=== PATIENT | male | born 1990 | race Caucasian/White ===

== ENCOUNTER 2019-06-08 04:00 | Emergency (ER) | payer SELFPAY ==
--- NOTE | 2019-06-08 04:34 | EDM.PDOC ---
ED HPI GENERAL MEDICAL PROBLEM - General Chief Complaint: General Stated Complaint: AMB Time Seen by Provider: 06/08/19 04:27 Source of Information: Reports: Patient History Limitations: Reports: No Limitations - History of Present Illness INITIAL COMMENTS - FREE TEXT/NARRATIVE: 29-year-old male presents the emergency room with multiple small nonsuturable lacerations to the face and hands. Patient in an argument with police. Patient tried several times to escape the police and is now in handcuffs Onset: Today Duration: Intermittent Location: Reports: Head, Face Severity: Mild Improves with: Reports: None Associated Symptoms: Reports: No Other Symptoms - Related Data Allergies Allergy/AdvReac Type Severity Reaction Status Date / Time Unable to Assess Allergy Unverified 06/08/19 04:07 Home Meds: Home Meds . [Unable to Verify Home Med List] 06/08/19 [History] ED ROS GENERAL - Review of Systems Review Of Systems: See Below Constitutional: Reports: No Symptoms HEENT: Reports: No Symptoms, Other (Multiple small lacerations) Respiratory: Reports: No Symptoms Cardiovascular: Reports: No Symptoms Endocrine: Reports: No Symptoms GI/Abdominal: Reports: No Symptoms : Reports: No Symptoms Musculoskeletal: Reports: No Symptoms Skin: Reports: No Symptoms Neurological: Reports: No Symptoms Psychiatric: Reports: No Symptoms Hematologic/Lymphatic: Reports: No Symptoms Immunologic: Reports: No Symptoms ED EXAM, GENERAL - Physical Exam Exam: See Below Exam Limited By: No Limitations General Appearance: Alert, WD/WN, No Apparent Distress Eye Exam: Bilateral Eye: Normal Fundi, Normal Inspection, PERRL Ears: Normal External Exam, Normal Canal Ear Exam: Bilateral Ear: Auricle Normal Nose: Other (Superficial laceration to the nares) Throat/Mouth: Normal Inspection, Normal Lips Head: Atraumatic Neck: Normal Inspection Respiratory/Chest: No Respiratory Distress Cardiovascular: Normal Peripheral Pulses GI/Abdominal: Normal Bowel Sounds, Soft, Non-Tender Back Exam: Normal Inspection Extremities: Normal Inspection Neurological: Alert, Oriented, CN II-XII Intact Psychiatric: Normal Affect Skin Exam: Warm, Dry, Intact Lymphatic: No Adenopathy Course - Vital Signs Text/Narrative:: Presents the emergency room with a multiple lacerations to the face. Patient is intoxicated but not too intoxicated to fight to police officers. Patient is oriented x3. Patient has no pain in the C-spine area. Injuries appear to be multiple abrasions to the face bleeding is controlled. Last Recorded V/S: Last Vital Signs Temp 98.2 F 06/08/19 04:00 Pulse 112 H 06/08/19 04:00 Resp 18 06/08/19 04:00 BP 121/80 06/08/19 04:00 Pulse Ox 95 06/08/19 04:00 Departure - Departure Time of Disposition: 04:34 Disposition: Home, Self-Care 01 Condition: Good Clinical Impression: Alcohol intoxication, Combative behavior Facial abrasion Qualifiers: Encounter type: initial encounter Qualified Code(s): S00.81XA - Abrasion of other part of head, initial encounter - Discharge Information Instructions: Wound Care, Adult, Alcohol Intoxication, [id number] Sepsis Event Note - Evaluation Sepsis Screening Result: No Definite Risk - Focused Exam Vital Signs: Vital Signs Temp Pulse Resp BP Pulse Ox 06/08/19 04:00 98.2 F 112 H 18 121/80 95 Date Exam was Performed: 06/08/19 Time Exam was Performed: 04:28
== END 2019-06-08 04:35 ==
LOC: MW.ED 04:00
CPT/HCPCS: 99282; 99283